=== PATIENT | male | born 1995 | race Caucasian/White ===

== ENCOUNTER 2024-12-25 18:52 | Emergency (ER) | payer MEDICAID, OTHER ==
[~2024-12-25] VITALS: Ht 177.8 cm; Wt 90.0 kg
[2024-12-25 19:21] LABS: BASOPHILS # (AUTO) 0.1 X10'3 (0-0.2); BASOPHILS % (AUTO) 0.5 % (0-1); EOSINOPHILS % (AUTO) 0.1 % (0-6); HEMATOCRIT 44.5 % (42.0-52.0); HEMOGLOBIN 15.2 g/dl (14.0-17.9); LYMPHOCYTES # (AUTO) 1.3 X10'3 (1.1-4.8); LYMPHOCYTES % (AUTO) 12.3 % (21-51); MEAN CORPUSCULAR HEMOGLOBIN 29.1 PG (27.0-31.0); MEAN CORPUSCULAR HGB CONC 34.1 g/dL (33.0-36.5); MEAN CORPUSCULAR VOLUME 85.4 FL (78-98); MEAN PLATELET VOLUME 8.7 FL (7.4-10.4); MONOCYTES # (AUTO) 0.6 X10'3 (0-0.9); MONOCYTES % (AUTO) 5.3 % (2-12); NEUTROPHILS # (AUTO) 8.8 X10'3 (1.8-7.7); NEUTROPHILS % (AUTO) 81.8 % (42-75); PLATELET COUNT 262 X10'3 (140-440); RED BLOOD COUNT 5.21 X10'6 (4.70-6.10); RED CELL DISTRIBUTION WIDTH 13.5 % (11.5-14.5); WHITE BLOOD COUNT 10.8 X10'3 (4.5-11.0)
[2024-12-25 19:33] LABS: ALANINE AMINOTRANSFERASE 47 U/L (12-78); ALBUMIN 4.5 G/DL (3.4-5.0); ALBUMIN/GLOBULIN RATIO 1.5 (1.1-1.5); ALKALINE PHOSPHATASE 100 IU/L (46-116); ANION GAP 11 (8-16); ASPARTATE AMINO TRANSFERASE 25 U/L (10-37); BILIRUBIN,TOTAL 0.7 MG/DL (0.1-1.0); BLOOD UREA NITROGEN 11 MG/DL (7-18); CALCIUM 8.7 MG/DL (8.5-10.1); CHLORIDE 105 MMOL/L (99-107); GLUCOSE 99 MG/DL (70-104); SODIUM 142 MMOL/L (135-145); TOTAL CARBON DIOXIDE 25.9 MMOL/L (24-32); TOTAL PROTEIN 7.6 G/DL (6.4-8.2); eCRCL 103 ML/MIN; eGFR 80 ML/MIN
[2024-12-25 19:43] LABS: THYROID STIMULATING HORMONE 0.76 ulU/ml (0.34-4.50)
[2024-12-26 00:30] LABS: BILIRUBIN,URINE NEGATIVE (Neg); CLARITY,URINE CLEAR (Clear); COLOR,URINE YELLOW (Yellow); GLUCOSE, URINE NEGATIVE (Neg); KETONES,URINE TRACE mg/dl (Neg); LEUKOCYTE ESTERASE ,URINE NEGATIVE (Neg); NITRITES, URINE NEGATIVE (Neg); OCCULT BLOOD,URINE NEGATIVE (Neg); PROTEIN,URINE NEGATIVE (Neg); UROBILINOGEN,URINE 0.2 E.U/dL (0.2-1.0)
[2024-12-26 00:33] LABS: UA COLLECTION TYPE NON-SPECIFIED
[2024-12-26 00:53] LABS: URINE AMPHETAMINE SCREEN NEGATIVE (Neg); URINE BARBITUATE SCREEN NEGATIVE (Neg); URINE BENZODIAZEPINES SCREEN NEGATIVE (Neg); URINE CANNABINOID SCREEN NEGATIVE (Neg); URINE COCAINE SCREEN NEGATIVE (Neg); URINE METHADONE SCREEN NEGATIVE (Neg); URINE OPIATE SCREEN NEGATIVE (Neg); URINE PHENCYCLIDINE SCREEN NEGATIVE (Neg)
--- NOTE | 2024-12-26 02:05 | Physician Documentation ---
History of Present Illness ~ Chief Complaint: 5150 Stated Complaint: 5150 Time Seen by MD: 19:07 Primary Medical Doctor: NONE Mode of Arrival: Police HPI Patient is seen today stating that he was brought here against his well by law enforcement after he and his significant other had not disagreement. Patients states his significant other tried to leave with there 1-year-old son but the patient did not let that happen. Patient states that his significant other made applies about him leaving a firearm around or brandishing a firearm. Patient currently denies any suicidal or homicidal ideation. Patient denies any chest pain or shortness of breath or abdominal pain or nausea, vomiting, diarrhea or any physical trauma of any kind. He has been other concern or complaint at this time. Medication Reconciliation Allergies: Coded Allergies: No Known Allergies (Unverified , 02/11/14) No Active Prescriptions or Reported Meds Past Medical History Past Medical History: No Pertinent History Past Surgical History: no surgical history Lives In: Home Occupation: student Review of Systems All Other Systems at this time: Reviewed and Negative Constitutional: Denies: chills, fever, weakness Eyes: Denies: pain, blurred vision ENT: Denies: ear pain, nose pain, throat pain, mouth pain Respiratory: Denies: cough, shortness of breath Cardiovascular: Denies: chest pain, palpitations Gastrointestinal: Denies: abdominal pain, nausea, vomiting Genitourinary: Denies: burning, dysuria Male Genitalia: Denies: penile discharge, testicular pain Neurological: Denies: headache, dizziness Musculoskeletal: Denies: pain, swelling Integumentary: Denies: rash, lesions Allergic/Immunologic: Denies: hives, itching Hematologic/Lymphatic: Denies: no symptoms reported Psychiatric: Denies: depression, anxiety Physical Exam Vital Signs: Temperature: 98.2, Source: Oral, Heart Rate: 92, Respiratory Rate: 16, BP: 131/95, Pulse Oximetry: 98, Weight: 90.000 Physical Exam General: Awake and Alert, no acute distress. HEENT: Conjunctiva pink, Sclera clear, Mucus Membranes moist. Neck: Supple without masses and tenderness. Resp: Unlabored. Lungs clear to auscultation bilaterally. Heart: Regular Rate and rhythm, normal S1 and S2 without murmur, rub or gallop. Abdomen: Soft and non tender no organomegaly Extremities: No cyanosis,clubbing or edema. Skin: Warm and Dry. Progress Progress Note 1:54 p.m. doctor Casandra I discussed this case with [facility] who evaluated the patient in depth they feel that he is not suicidal I agree. Hit his firearms have been removed from his home and he is going to be staying with his brother. Patient is amenable to this plan Labs independently interpreted by myself shows no acute abnormality Results/Orders Reviewed/noted all lab results: Yes Results/Orders Vital Signs 12/25/24 12/25/24 12/25/24 12/26/24 18:55 21:43 21:49 06:26 Temp 98.4 98.2 Pulse 92 92 Resp 16 18 16 16 B/P (MAP) 131/95 131/95 (107) Pulse Ox 98 98 12/26/24 14:24 Temp 97.6 Pulse 103 Resp 18 B/P (MAP) 132/82 Pulse Ox 99 Laboratory Tests Test 12/25/24 00:01 12/25/24 19:12 12/25/24 19:47 Urine Specimen Description Non-specified Urine Color Yellow Urine Clarity Clear Urine pH 6.0 Urine Specific Ideal 1.020 Urine Protein Negative Urine Glucose (UA) Negative Urine Ketones Trace H Urine Occult Blood Negative Urine Nitrite Negative Urine Bilirubin Negative Urine Urobilinogen 0.2 Urine Leukocyte Esterase Negative Volume Urine Centrifuged 10 ml Urine Comment Urine Opiates Screen Negative Urine Methadone Screen Negative Urine Fentanyl Screen Negative Urine Barbiturates Screen Negative Urine Phencyclidine Screen Negative Urine Amphetamines Screen Negative Urine Benzodiazepines Screen Negative Urine Cocaine Screen Negative Urine Cannabinoids Screen Negative Drug Screen Comment White Blood Count 10.8 Red Blood Count 5.21 Hemoglobin 15.2 Hematocrit 44.5 Mean Corpuscular Volume 85.4 Mean Corpuscular Hemoglobin 29.1 Mean Corpuscular Hemoglobin Concent 34.1 Red Cell Distribution Width 13.5 Platelet Count 262 Mean Platelet Volume 8.7 Neutrophils (%) (Auto) 81.8 H Lymphocytes (%) (Auto) 12.3 L Monocytes (%) (Auto) 5.3 Eosinophils (%) (Auto) 0.1 Basophils (%) (Auto) 0.5 Neutrophils # (Auto) 8.8 H Lymphocytes # (Auto) 1.3 Monocytes # (Auto) 0.6 Eosinophils # (Auto) 0.0 Basophils # (Auto) 0.1 CBC Comment Sodium Level 142 Potassium Level 4.0 Chloride Level 105 Carbon Dioxide Level 25.9 Anion Gap 11 Blood Urea Nitrogen 11 Creatinine 1.10 Estimated GFR/1.73 m2 80 BUN/Creatinine Ratio 10.0 Glucose Level 99 Calcium Level 8.7 Total Bilirubin 0.7 Aspartate Amino Transf (AST/SGOT) 25 Alanine Aminotransferase (ALT/SGPT) 47 Alkaline Phosphatase 100 Total Protein 7.6 Albumin 4.5 Globulin 3.1 Albumin/Globulin Ratio 1.5 Thyroid Stimulating Hormone (TSH) 0.76 Chemistry Comments SARS-CoV-2 Antigen (Rapid) Negative Medical Decision Making Findings Patient is seen today stating that he was brought here against his well by law enforcement after he and his significant other had not disagreement. Patients states his significant other tried to leave with there 1-year-old son but the patient did not let that happen. Patient states that his significant other made applies about him leaving a firearm around or brandishing a firearm. Patient currently denies any suicidal or homicidal ideation. Patient denies any chest pain or shortness of breath or abdominal pain or nausea, vomiting, diarrhea or any physical trauma of any kind. He has been other concern or complaint at this time. Patient is medically cleared for mental health evaluation. Differential Dx:Considerations: Include: Alcohol abuse, Anxiety, Bipolar disorder Departure Disposition: 01 HOME / SELF CARE / HOMELESS Admitted to Inpatient Unit: to hospitalist Impression: Primary Impression: Agitation Condition: Stable Discharge Instructions: Psychosis Additional Instructions: Please return to the emergency department if you have any further thoughts of self-harm Referrals: NO PRIMARY CARE PROVIDER (PCP) Prescriptions No Active Prescriptions or Reported Meds Signature Scribe Signature: No scribe Attestation: No scribe JORGE BELTRAN Dec 26, 2024 02:05 TANK AMADOR MD Dec 26, 2024 13:55
[2024-12-26 14:24] VITALS: BP 132/82; PULSE 103; RESP 18; TEMP 97.6; O2SAT 99
== END 2024-12-26 14:31 | disposition home or self-care (01) ==
LOC: ER 18:53
DX: R45.1 Restlessness and agitation (principal); Z20.822 Contact with and (suspected) exposure to COVID-19
CPT/HCPCS: 36415; 80053; 80305; 81003; 84443; 85025; 87811; 99285